=== PATIENT | male | born 1935 | race Caucasian/White ===

== ENCOUNTER 2024-02-12 08:49 | Outpatient (CLI) | payer MEDICARE, SELFPAY | END 2024-02-12 08:50 | disposition home or self-care (01) | PROVIDERS: PCP Specialist; Visit Provider Specialist | DX: D48.5 Neoplasm of uncertain behavior of skin (principal); D03.39 Melanoma in situ of other parts of face; C44.329 Squamous cell carcinoma of skin of other parts of face; C44.519 Basal cell carcinoma of skin of other part of trunk | CPT/HCPCS: 88305; 88342 ==